=== PATIENT | female | born 1965 | race Caucasian/White ===

== ENCOUNTER 2020-11-10 17:40 | Emergency (ER) | payer BC ==
--- NOTE | 2020-11-10 18:15 | EDM.PDOC ---
ED HPI GENERAL MEDICAL PROBLEM - General Chief Complaint: Genitourinary Problem Stated Complaint: ? BLADDER INFECTION Time Seen by Provider: 11/10/20 18:14 Source of Information: Reports: Patient History Limitations: Reports: No Limitations - History of Present Illness INITIAL COMMENTS - FREE TEXT/NARRATIVE: Sara, 55-year-old female, presents with urinary frequency and burning. States that this afternoon while at work roughly 1230 to 1300 hours noticed some discomfort at completion of her urination. This continued throughout the day worsening at the conclusion of her shift. 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 States there may have been slight blood-tinged urine at the conclusion of her last void prior to her arrival. Acknowledges less than ideal fluid intake secondary of her workforce ability on the [email or web address]. Typically 2 cups of coffee in the morning followed by a Mountain Dew it breaks with limited water intake until after her shift completes. It is noted this week she has been working extra shifts secondary of short staff at the [employer] plant in [place]. This also likely contributes to disruption of her fluid intake cycle. Onset: Today Onset Date: 11/10/20 Onset Time: 12:30 Duration: Hour(s): Location: Reports: Pelvis Quality: Reports: Burning, Sharp Severity: Moderate Improves with: Reports: None Worsens with: Reports: Other (urination) - Related Data Allergies Allergy/AdvReac Type Severity Reaction Status Date / Time bacitracin Allergy Itching Verified 11/10/20 18:12 [From Triple Antibiotic] neomycin Allergy Itching Verified 11/10/20 18:12 [From Triple Antibiotic] polymyxin B Allergy Itching Verified 11/10/20 18:12 [From Triple Antibiotic] Home Meds: Home Meds Phenazopyridine HCl [Pyridium] 200 mg PO TID PRN 3 Days #8 tablet 11/10/20 [Rx] Sulfamethoxazole/Trimethoprim [Bactrim Ds Tablet] 1 each PO BID 6 Days #12 tablet 11/10/20 [Rx] Past Medical History Psychiatric History: Reports: Anxiety, Depression Social & Family History - Family History Family Medical History: No Pertinent Family History - Tobacco Use Tobacco Use Status *Q: Former Tobacco User ED ROS GENERAL - Review of Systems Review Of Systems: Comprehensive ROS is negative, except as noted in HPI. ED EXAM, GENERAL - Physical Exam Exam: See Below Free Text/Narrative:: Alert, oriented visiting freely in no acute distress. HEENT is negative discharge or deformity. Neck soft supple no lymphadenopathy Thorax is clear, cardiac is regular. No flank pain to percussion nor palpation, no abdominal discomfort nor pressure. Able to move about with no discomfort. Course - Vital Signs Last Recorded V/S: Last Vital Signs Temp 97.1 F 11/10/20 17:46 Pulse 53 L 11/10/20 17:46 Resp 16 11/10/20 17:46 BP 169/96 H 11/10/20 17:46 Pulse Ox 98 11/10/20 17:46 - Orders/Labs/Meds Orders: Active Orders 24 hr Category Date Time Status CULTURE URINE [RM] Stat Lab 11/10/20 18:43 Ordered Phenazopyridine [Pyridium] Med 11/10/20 18:45 Ordered 300 mg PO TID PRN Labs: Laboratory Tests 11/10/20 Range/Units 18:06 Specimen Type Urinblad Urine Color Marilu H (YELLOW) Urine Appearance Cloudy H (CLEAR) Urine pH 5.5 (5.0-9.0) Ur Specific [place] 1.010 (1.005-1.030) Urine Protein 100 H (NEGATIVE) mg/dL Urine Glucose (UA) Negative (NEGATIVE) mg/dL Urine Ketones Negative (NEGATIVE) mg/dL Urine Occult Blood Large H (NEGATIVE) Urine Nitrite Negative (NEGATIVE) Urine Bilirubin Negative (NEGATIVE) Urine Urobilinogen 0.2 (0.2-1.0) E.U./dL Ur Leukocyte Esterase Moderate H (NEGATIVE) Urine RBC Semi-packed (0-5) /HPF Urine WBC Semi-packed (0-5) /HPF Ur Epithelial Cells Few /LPF Urine Bacteria Few (NONE TO FEW) /HPF Departure - Departure Time of Disposition: 18:57 Disposition: Home, Self-Care 01 Condition: Good Clinical Impression: UTI, Urinary tract infectious disease, Dysuria - Discharge Information *PRESCRIPTION DRUG MONITORING PROGRAM REVIEWED*: Not Applicable *COPY OF PRESCRIPTION DRUG MONITORING REPORT IN PATIENT MAHI: Not Applicable Prescriptions: Sulfamethoxazole/Trimethoprim [Bactrim Ds Tablet] 1 each PO BID 6 Days #12 t ablet Phenazopyridine HCl [Pyridium] 200 mg PO TID PRN 3 Days #8 tablet PRN Reason: Pain Referrals: Karina Goodrich PA-C [Primary Care Provider] - Forms: ED Department Discharge Additional Instructions: Medication of Bactrim DS 1 tablet twice daily for 7 days. Pyridium 200 mg 1 3 times a day for the next 2 days to help with discomfort. Need to increase your water intake significantly. Urine should only be dark when awakening in the morning, with the remainder of the day being only slightly yellow in color, almost as clear as the water you are drinking. Culture will be performed on the urinalysis to determine any sensitivity resistance. You will only be called if the bacteria is resistant to the current treatment regimen. Follow-up with your clinic if not improving or worsening. Sepsis Event Note (ED) - Evaluation Sepsis Screening Result: No Definite Risk - Focused Exam Vital Signs: Vital Signs Temp Pulse Resp BP Pulse Ox 11/10/20 17:46 97.1 F 53 L 16 169/96 H 98 - Problem List & Annotations (1) Dysuria SNOMED Code(s): 81222781 Code(s): R30.0 - DYSURIA Status: Acute Priority: High Current Visit: Yes (2) UTI (urinary tract infection) SNOMED Code(s): 28710284 Code(s): N39.0 - URINARY TRACT INFECTION, SITE NOT SPECIFIED Status: Acute Priority: High Current Visit: Yes Qualifiers: Urinary tract infection type: acute cystitis Hematuria presence: with hematuria Qualified Code(s): N30.01 - Acute cystitis with hematuria - Problem List Review Problem List Initiated/Reviewed/Updated: Yes - My Orders Last 24 Hours: My Active Orders 11/10/20 18:43 CULTURE URINE [RM] Stat 11/10/20 18:45 Phenazopyridine [Pyridium] 300 mg PO TID PRN - Assessment/Plan Last 24 Hours: My Active Orders 11/10/20 18:43 CULTURE URINE [RM] Stat 11/10/20 18:45 Phenazopyridine [Pyridium] 300 mg PO TID PRN Plan: Medication of Bactrim DS 1 tablet twice daily for 7 days. Pyridium 200 mg 1 3 times a day for the next 2 days to help with discomfort. Need to increase your water intake significantly. Urine should only be dark whe n awakening in the morning, with the remainder of the day being only slightly yellow in color, almost as clear as the water you are drinking. Culture will be performed on the urinalysis to determine any sensitivity resistance. You will only be called if the bacteria is resistant to the current treatment regimen. Follow-up with your clinic if not improving or worsening.
[2020-11-10] MEDS ORDERED: Sulfamethoxazole/Trimethoprim 800-160 MG Tab PO ONE (18:44)
[2020-11-10] MEDS ORDERED: Phenazopyridine 100 MG Tab PO PRN (18:45)
== END 2020-11-10 19:15 | disposition home or self-care (01) ==
LOC: KA.ED 17:40
DX: N39.0 Urinary tract infection, site not specified (principal); Z87.891 Personal history of nicotine dependence; Z88.1 Allergy status to other antibiotic agents
CPT/HCPCS: 81001; 87086; 87088; 87186; 99283; A9270-GY

== ENCOUNTER 2023-08-07 07:43 | Day surgery (SDC) | payer BC ==
[2023-08-07] MEDS ORDERED: Ondansetron 4 MG/2 ML SDV IV ONE (07:44)
[2023-08-07] MEDS ORDERED: Glycopyrrolate 0.2 MG/ML SDV IVPUSH ONE (07:44)
[2023-08-07] MEDS ORDERED: Succinylcholine 200 MG/10 ML MDV IV ONE (07:44)
[2023-08-07] MEDS ORDERED: Rocuronium 50 MG/5 ML Vial IV ONE (07:44)
[2023-08-07] MEDS ORDERED: Neostigmine Methylsulfate 10 MG/10 ML MDV IV ONE (07:44)
[2023-08-07] MEDS ORDERED: Sodium Chloride 0.9% 10 ML Syringe FLUSH PRN (08:00)
[2023-08-07] MEDS: Lactated Ringers 1,000 ML IV SCH (08:12)
[2023-08-07] MEDS ORDERED: Bupivacaine 0.5%/EPINEPHrine 1:200,000 50 ML MDV ONE (08:32)
[2023-08-07] MEDS ORDERED: Lactated Ringers 1,000 ML ONE ×2 (08:32→08:40)
[2023-08-07] MEDS ORDERED: ceFAZolin 1 GM Vial ONE ×2 (08:32→08:42)
[2023-08-07] MEDS ORDERED: Propofol 200 MG/20 ML SDV ONE (08:39)
[2023-08-07] MEDS ORDERED: fentaNYL 250 MCG/5 ML SDV ONE (08:39)
[2023-08-07] MEDS ORDERED: Midazolam 1 MG/ML 2 ML SDV ONE (08:39)
[2023-08-07] MEDS ORDERED: Ketorolac 30 MG/ML SDV ONE (08:40)
[2023-08-07] MEDS ORDERED: Dexamethasone 4 MG/ML SDV ONE (08:40)
[2023-08-07] MEDS: Bupivacaine 0.5%/EPINEPHrine 1:200,000 50 ML MDV INFILT ONE (09:37)
[2023-08-07] MEDS ORDERED: Sodium Chloride 0.9% 100 ML ONE (09:40)
== END 2023-08-07 13:36 | disposition home or self-care (01) ==
LOC: KA.SDS 07:43
PROVIDERS: ATTEND Surgery
DX: K80.10 Calculus of gallbladder with chronic cholecystitis without obstruction (principal); Z79.899 Other long term (current) drug therapy; Z87.891 Personal history of nicotine dependence; Z88.8 Allergy status to other drugs, medicaments and biological substances
CPT/HCPCS: J0330; J0690; J1100; J2250; J2405; J2704; J2710; J3010; J3490; J7120

== ENCOUNTER 2023-08-13 12:57 | Emergency (ER) | payer BC ==
[2023-08-13] MEDS ORDERED: Sodium Chloride 0.9% 10 ML Syringe FLUSH PRN (13:04)
[2023-08-13] MEDS ORDERED: Sodium Chloride 0.9% 1,000 ML IV ONE (13:04)
[2023-08-13 13:14] LABS: BASOPHILS PERCENT AUTO 1.6 % (0.0-1.0); EOSINOPHILS ABSOLUTE AUTO 0.29 10^3/uL (0.10-0.30); EOSINOPHILS PERCENT AUTO 4.5 % (1.0-3.0); HEMATOCRIT 45.1 % (37.0-47.0); HEMOGLOBIN 14.5 g/dL (12.0-16.0); IMMATURE GRAN ABSOLUTE AUTO 0.01 10^3/uL (0.00-0.50); IMMATURE GRAN PERCENT AUTO 0.2 % (0.0-5.0); LYMPHOCYTES PERCENT AUTO 29.5 % (20.0-40.0); MEAN CORPUSCULAR HEMOGLOBIN 28.4 pg (27.0-31.0); MEAN CORPUSCULAR HGB CONC 32.2 g/dL (32.0-36.0); MEAN CORPUSCULAR VOLUME 88.4 fL (82.0-92.0); MEAN PLATELET VOLUME 9.8 fL (7.4-10.4); MONOCYTES ABSOLUTE AUTO 0.48 10^3/uL (0.10-0.80); MONOCYTES PERCENT AUTO 7.5 % (2.0-8.0); NEUTROPHILS ABSOLUTE AUTO 3.65 10^3/uL (2.50-7.00); NEUTROPHILS PERCENT AUTO 56.7 % (50.0-70.0); PLATELET COUNT,PLT 241 10^3/uL (150-400); RED CELL DISTRIBUTION WIDTH 11.7 % (11.5-14.5); WHITE BLOOD CELL COUNT,WBC 6.43 10^3/uL (5.00-10.00)
[2023-08-13] MEDS ORDERED: Iopamidol 755 Mg/ML 100 ML Bottle IV ONE (13:27)
[2023-08-13] MEDS ORDERED: Sodium Chloride 0.9% 50 ML IV SCH (13:30)
[2023-08-13 13:33] LABS: BILIRUBIN,URINE LARGE (NEGATIVE); COLOR,URINE DARK YELLOW (YELLOW); GLUCOSE,URINE NEGATIVE (NEGATIVE); KETONES,URINE NEGATIVE (NEGATIVE); LEUKOCYTE ESTERASE,URINE MODERATE (NEGATIVE); NITRITE,URINE NEGATIVE (NEGATIVE); OCCULT BLOOD,URINE TRACE-LYSED (NEGATIVE); PH,URINE 5.5 (5.0-9.0); PROTEIN,URINE NEGATIVE (NEGATIVE); UROBILINOGEN,URINE 0.2 E.U./dL (0.2-1.0)
[2023-08-13 13:39] LABS: ALBUMIN 3.73 g/dL (3.40-5.00); ALKALINE PHOSPHATASE 259 U/L (46-116); AMYLASE 48 U/L (25-125); BLOOD UREA NITROGEN,BUN 10 mg/dL (7-18); CALCIUM 8.8 mg/dL (8.7-10.3); CHLORIDE,CL 100 mmol/L (98-107); CREATININE 0.71 mg/dL (0.51-1.17); EST CRCL DRUG DOSING (CG) 94.18 mL/min; GLUCOSE RANDOM 100 mg/dL (70-140); LIPASE 49 U/L (16-77); PROTEIN TOTAL,TP 7.5 g/dL (6.4-8.2); SODIUM,NA 135 mmol/L (136-145)
[2023-08-13 13:42] LABS: APPEARANCE,URINE SLIGHTLY CLOUDY (CLEAR)
[2023-08-13 13:43] LABS: BACTERIA,URINE FEW /HPF (NONE TO FEW); EPITHELIAL CELLS,URINE FEW /LPF; RBC,URINE 0-5 /HPF (0-5)
[2023-08-13 13:45] LABS: ALANINE AMINOTRANSFERASE,ALT 1103 U/L (14-63); ASPARTATE AMNIOTRANSFERASE,AST 831 U/L (15-37); ESTIMATED GFR 97 mL/min (>=60)
[2023-08-13] MEDS ORDERED: Ondansetron 4 MG/2 ML SDV IVPUSH ONE (16:01)
[2023-08-13] MEDS ORDERED: HYDROmorphone 1 MG/ML Syringe IVPUSH ONE (16:02)
[2023-08-13] MEDS ORDERED: Naloxone 0.4 MG/ML SDV IVPUSH PRN (16:02)
== END 2023-08-13 16:28 ==
LOC: KA.ED 12:57
DX: R10.9 Unspecified abdominal pain (principal); G89.18 Other acute postprocedural pain; R79.89 Other specified abnormal findings of blood chemistry; Z88.8 Allergy status to other drugs, medicaments and biological substances; Z79.899 Other long term (current) drug therapy; Z90.49 Acquired absence of other specified parts of digestive tract; Z90.710 Acquired absence of both cervix and uterus
CPT/HCPCS: 36415; 74177; 80053; 81001; 82150; 83605; 83690; 84484; 85025; 96361; 96374; 96375; 99284; 99285-25; J1170; J2405; J3490; J7030; Q9967